=== PATIENT | female | born 1935 | race Hispanic/Latino ===

== ENCOUNTER 2020-12-24 15:00 | Emergency (ER) | payer SELFPAY ==
[~2020-12-24] VITALS: Ht 160 cm; Wt 63.5 kg
== END 2020-12-24 17:15 | disposition home or self-care (01) ==
LOC: ER 15:03
DX: Z43.1 Encounter for attention to gastrostomy (principal); Z85.05 Personal history of malignant neoplasm of liver; Z85.3 Personal history of malignant neoplasm of breast; Z98.0 Intestinal bypass and anastomosis status; F17.210 Nicotine dependence, cigarettes, uncomplicated
CPT/HCPCS: 99282